=== PATIENT | male | born 1980 | race Caucasian/White ===

== ENCOUNTER 2022-11-27 15:16 | Observation (INO) ==
[2022-11-27] MEDS ORDERED: ASPIRIN CHEW 324 MG PO STA (15:38)
[2022-11-27] MEDS ORDERED: ALUMINUM/MAGNESIUM SUSP 30 ML UDC PO STA (15:38)
--- NOTE | 2022-11-27 15:42 | Emergency Department Note ---
Impression & Plan Non-ST elevation CT (NSTEMI), Chest pain ED Provider Note NAME: MICHELLE LEMUS AGE: 42 SEX: M : 1980 ARRIVES VIA: Walk-In INFORMANT: Patient, ED PROVIDER(S): Damon Etienne DO CHIEF COMPLAINT: Chest pain HPI: The patient is a 42-year-old male who presented to the emergency department for an evaluation of chest pain. The patient describes anterior chest pain which is retrosternal that began this morning. The patient states he awoke around 630 this morning with the chest pain. He does note some shortness of breath and some increase with the pain with breathing. He denies having any abdominal pain. He states he went golfing yesterday and after golfing and noticed some lower neck pain. He states the neck pain is since gone. He denies having any headache. He does note some back pain. The patient states he has no heart history and has had no cardiac work-up in the past. ROS: See above HPI for pertinent positives & negatives. A total of 10 systems reviewed and were otherwise negative. PAST MEDICAL HISTORY: See Below PAST SURGICAL HISTORY: See Below FAMILY HISTORY: See Below SOCIAL HISTORY: See Below HOME MEDICATIONS: See Below ALLERGIES: See Below VITALS: See Below PHYSICAL EXAMINATION: GENERAL: The patient is awake and alert. The patient is somewhat anxious appearing. EYES: The conjunctivae are clear. The pupils are round and reactive. EARS, NOSE, MOUTH AND THROAT: The nose is without any evidence of any deformity. NECK: The neck is nontender and supple. RESPIRATORY: Normal respiratory effort is noted there is no evidence of wheezing rhonchi or rales CARDIOVASCULAR: Regular rate and rhythm noted there no murmurs rubs or gallops normal S1 normal S2. GASTROINTESTINAL: The abdomen is soft. Abdomen is nontender. MUSCULOSKELETAL/EXTREMITIES: There is no evidence of gross deformity full range of motion is noted in the hips and shoulders. SKIN: There is no obvious evidence of any rash. There are no petechiae, pallor or cyanosis noted. NEUROLOGIC: Patient is awake alert and oriented x3 MEDICAL DECISION MAKING: The patient is a 42-year-old male who presented into the emergency department for an evaluation of chest pain. The patient had a normal EKG in the emergency department. He was treated with aspirin as well as Maalox in the emergency department. He did have pain to his back initially thought this could be consis tent with a GI source for his pain. The patient was found to have an elevation in his troponin. He also had an elevation in his D-dimer. Given his back pain there is concern for venous thromboembolic disease as well as aortic dissection. For this reason dissection study was ordered but I discussed his condition with the [facility] router setter as well as the bobbin doffer after his troponin came back elevated. Given the patient's normal EKG he was started on heparin initially. Then the decision was made to make the patient a heart alert. Given the patient's age as well as his risk factors and family history he may be a candidate for cardiac catheterization with intervention. The patient was feeling much better on subsequent reevaluation. I discussed his condition also with the [facility] Hospitalist. The patient was agreeable to the plan. Triage Nursing notes reviewed. Prior medical records reviewed Vital Signs: reviewed and remarkable for no significant abnormalities Differential diagnosis: Cardiac ischemia, aortic dissection, pulmonary embolism, pneumothorax, pneum onia, pericarditis, myocarditis, esophageal rupture, GERD, cholecystitis, pancreatitis, musculoskeletal, as well as other pathologies. ER treatment provided: See below Diagnostics interpreted by me: ECG: EKG was obtained in the emergency department. My interpretation is normal sinus rhythm at 88 bpm. There is no ectopy. There is no acute ST segment abnormalities noted. No previous tracing was available. A second EKG was obtained in the emergency department. My interpretation is normal sinus rhythm at 89 bpm. There is no ectopy. There is no acute ST segment abnormalities noted. This EKG compares favorably to the earlier tracing. There are no significant changes. Cardiac Monitoring: An order was placed for continuous cardiac monitoring. The monitor shows a rate of 89 bpm with sinus rhythm. Laboratory studies: As stated above and show below. Imaging studies: See below. Radiographic imaging was reviewed by myself Consultation(s): I discussed this case with Dr. Gregorio who is on-call for the [facility] cardiology group. I discussed this case with Dr Stevens I discussed this case with Lorna who is on-call for the [facility] hospitalist group. ED COURSE: Procedures: none Critical Care: I have personally spent greater than 45 minutes of critical care time in the direct management of this patient. This includes bedside care, interpretation of diagnostic studies, and testing, discussion with consultants, patient, and family members, and other required patient management activities. This 45 minutes is in excess of all separately billable procedures. Past Med/Surg History Social History Smoking Status: Current some day smoker Feels Safe at Home: Yes Allergies Allergies Allergy/AdvReac Type Severity Reaction Status Date / Time No Known Allergies AdvReac Unknown Unverified 07/05/04 13:41 Home Meds Home Medications Medication Instructions Recorded Confirmed ibuprofen 200 mg tablet (Advil) 200 mg PO DAILY PRN Pain 11/27/22 11/27/22 Results & Data (ED) Vital Signs Vital Signs - 24 hr 11/27/22 15:17 11/27/22 15:46 11/27/22 15:47 Temperature 36.6 C Temperature Source Temporal Artery Scan Pulse Rate 95 H 85 Pulse Rate [Apical] 81 Pulse Rhythm [Apical] Pulse Strength [Apical] Respiratory Rate 20 21 21 Respiratory Effort / Characteristics Non-Labored Respiratory Depth Normal Blood Pressure 135/88 Blood Pressure [Right Arm] 142/97 H Blood Pressure Mean 103 Blood Pressure Mean [Right Arm] 112 Blood Pressure Position [Right Arm] Semi-fowlers Pulse Oximetry 99 99 99 Oxygen Delivery Method Room Air Room Air Room Air Sepsis Recent Fever Within 48 Hours No Sepsis New/Unexplained Change in Mental Status No Sepsis Action Taken by Nursing No Action Required 11/27/22 16:06 11/27/22 18:45 Temperature Temperature Source Pulse Rate 79 Pulse Rate [Apical] 89 Pulse Rhythm [Apical] Regular Pulse Strength [Apical] Normal Respiratory Rate 16 Respiratory Effort / Characteristics Non-Labored Spontaneous Respiratory Depth Normal Blood Pressure Blood Pressure [Right Arm] 132/92 Blood Pressure Mean Blood Pressure Mean [Right Arm] 105 Blood Pressure Position [Right Arm] Semi-fowlers Pulse Oximetry 97 Oxygen Delivery Method Room Air Sepsis Recent Fever Within 48 Hours Sepsis New/Unexplained Change in Mental Status Sepsis Action Taken by Group Home Medications Current Medication List: was personally reviewed by me Laboratory Data Attestation: I reviewed the patient's lab results. 11/27/22 15:32 11/27/22 15:32 Lab Results 11/27/22 11/27/22 11/27/22 Range/Units 15:32 15:32 15:32 WBC 6.87 (4.8-10.8) K/ul RBC 5.16 (4.70-6.10) M/uL Hgb 16.1 (14.0-18.0) g/dl Hct 46.8 (42.0-52.0) % MCV 90.7 (80.0-100.0) fL MCH 31.2 (25.0-34.0) pg MCHC 34.4 (32.0-36.0) g/dL RDW Std Deviation 40.2 (36.4-46.3) fL RDW Coeff of Dottie 12.0 (11.5-14.5) % Plt Count 213 (130-400) K/uL MPV 9.3 L (9.4-12.4) fL Immature Gran % (Auto) 0.6 % Neut % (Auto) 80.0 % Lymph % (Auto) 8.3 % [place] % (Auto) 10.8 % Eos % (Auto) 0.0 % Baso % (Auto) 0.3 % Neut # (Auto) 5.50 (1.40-6.50) K/uL Lymph # (Auto) 0.57 L (1.2-3.4) K/uL [place] # (Auto) 0.74 H (0.11-0.59) K/uL Eos # (Auto) 0.00 (0-0.50) K/uL Baso # (Auto) 0.02 (0-0.2) K/uL Immature Gran # (Auto) 0.04 (0.01-0.20) K/uL PT 10.9 (9.0-12.0) Seconds INR 1.0 (0.9-1.1) D-Dimer 600 H* (0-500) ug/L FEU Sodium 136 (136-145) mmol/L Potassium 3.9 (3.5-5.1) mmol/L Chloride 103 (98-107) mmol/L Carbon Dioxide 25 (21-32) mmol/L Anion Gap 8 (3-11) BUN 16 (6-23) mg/dl Creatinine 1.19 (0.6-1.4) mg/dl Est Cr Clr Drug Dosing 80.0 ml/min Est GFR ( Amer) 86.2 ml/min Est GFR (Non-Af Amer) 74.4 ml/min BUN/Creatinine Ratio 13.4 (10-20) Glucose 139 H (70-99(Fasting)) mg/dl Calcium 10.0 (8.6-10.3) mg/dl Total Bilirubin 0.5 (0.2-1.0) mg/dl AST 64 H (13-39) U/L ALT 87 H (7-52) U/L Alkaline Phosphatase 70 (34-104) U/L Troponin I High Sens 1509.6 H* (0-20) pg/ml Total Protein 8.2 (6.0-8.3) gm/dl Albumin 4.8 (3.4-5.0) gm/dl Globulin 3.4 (2.5-4.0) gm/dl Albumin/Globulin Ratio 1.4 (0.9-2) Lipase 54 (11-82) U/L SARS-CoV-2, RNA, NAAT (NEGATIVE) 11/27/22 Range/Units 16:45 WBC (4.8-10.8) K/ul RBC (4.70-6.10) M/uL Hgb (14.0-18.0) g/dl Hct (42.0-52.0) % MCV (80.0-100.0) fL MCH (25.0-34.0) pg MCHC (32.0-36.0) g/dL RDW Std Deviation (36.4-46.3) fL RDW Coeff of Dottie (11.5-14.5) % Plt Count (130-400) K/uL MPV (9.4-12.4) fL Immature Gran % (Auto) % Neut % (Auto) % Lymph % (Auto) % [place] % (Auto) % Eos % (Auto) % Baso % (Auto) % Neut # (Auto) (1.40-6.50) K/uL Lymph # (Auto) (1.2-3.4) K/uL [place] # (Auto) (0.11-0.59) K/uL Eos # (Auto) (0-0.50) K/uL Baso # (Auto) (0-0.2) K/uL Immature Gran # (Auto) (0.01-0.20) K/uL PT (9.0-12.0) Seconds INR (0.9-1.1) D-Dimer (0-500) ug/L FEU Sodium (136-145) mmol/L Potassium (3.5-5.1) mmol/L Chloride (98-107) mmol/L Carbon Dioxide (21-32) mmol/L Anion Gap (3-11) BUN (6-23) mg/dl Creatinine (0.6-1.4) mg/dl Est Cr Clr Drug Dosing ml/min Est GFR ( Amer) ml/min Est GFR (Non-Af Amer) ml/min BUN/Creatinine Ratio (10-20) Glucose (70-99(Fasting)) mg/dl Calcium (8.6-10.3) mg/dl Total Bilirubin (0.2-1.0) mg/dl AST (13-39) U/L ALT (7-52) U/L Alkaline Phosphatase (34-104) U/L Troponin I High Sens (0-20) pg/ml Total Protein (6.0-8.3) gm/dl Albumin (3.4-5.0) gm/dl Globulin (2.5-4.0) gm/dl Albumin/Globulin Ratio (0.9-2) Lipase (11-82) U/L SARS-CoV-2, RNA, NAAT NEGATIVE (NEGATIVE) Administered Medications Discontinued Medications Al Hydrox/Mg Hydrox/Simethicone (Aluminum/Magnesium Susp 30 Ml Udc) 30 ml PO NOW STA Stop: 11/27/22 15:39 Last Admin: 11/27/22 15:44 Dose: 30 ml Documented By: AB Aspirin (Aspirin Chew 324 Mg) 324 mg PO NOW STA Stop: 11/27/22 15:39 Last Admin: 11/27/22 15:44 Dose: 324 mg Documented By: AB Fentanyl Citrate (Fentanyl Citrate Pf 100 Mcg/2 Ml Vial) Confirm Administered Dose 100 mcg .ROUTE .STK-MED ONE Stop: 11/27/22 17:56 Last Increment: 11/27/22 18:40 Dose: 50 mcg Documented By: NITHYA Heparin Sodium (Porcine) (Heparin Sod (Porcine) 1000 Unit/Ml) 1 units IV NOW ONE Stop: 11/27/22 17:41 Last Admin: 11/27/22 17:43 Dose: 6,000 units Documented By: KT Co-signed By: ANTHONY Heparin Sodium (Porcine) (Heparin (Porcine) 1000 Unit/Ml 10 Ml (Delivery Mgr Use Only)) Confirm Administered Dose 10,000 units .ROUTE .STK-MED ONE Stop: 11/27/22 17:56 Last Admin: 11/27/22 18:40 Dose: Not Given Documented By: NITHYA Heparin Sodium/Dextrose (Heparin Iv Adult Wt-Based Standard With Bolus Protocol) 1 each IV NOW STA; Protocol Stop: 11/27/22 17:26 Last Admin: 11/27/22 17:43 Dose: 1 each Documented By: RANI Heparin Sodium/Sodium Chloride (Heparin In Nss Infusion 1000 Unit/500 Ml (2 U/Ml) Bag) Confirm Administered Dose 4,000 units IV .STK-MED ONE Stop: 11/27/22 17:56 Last Admin: 11/27/22 18:40 Dose: 4,000 units Documented By: CHUCKY Heparin Sodium/Dextrose (Heparin Sodium/Dextrose) 25,000 units in 500 mls @ 27 mls/hr IV .[id number] [facility]; Protocol Stop: 12/27/22 17:44 Last Admin: 11/27/22 17:44 Dose: 1,350 units/hr, 27 mls/hr Documented By: RANI Co-signed By: ANTHONY Ioversol (Optiray 320 125ml) 120 ml IV ONCE ONE Stop: 11/27/22 17:09 Last Admin: 11/27/22 17:08 Dose: 120 ml Documented By: WILLIAMS Lidocaine HCl (Lidocaine 1% Local 20 Ml Vial) Confirm Administered Dose 20 ml .ROUTE .STK-MED ONE Stop: 11/27/22 17:57 Last Admin: 11/27/22 18:41 Dose: 20 ml Documented By: CHUCKY Midazolam HCl (Midazolam Hcl 1 Mg/Ml 2ml Vial) Confirm Administered Dose 2 mg .ROUTE .STK-MED ONE Stop: 11/27/22 17:56 Last Increment: 11/27/22 18:40 Dose: 1 mg Documented By: NITHYA Morphine Sulfate (Morphine Sulfate 4 Mg/Ml 1 Ml Carp\Vial) 4 mg IV NOW STA Stop: 11/27/22 16:52 Last Admin: 11/27/22 16:53 Dose: 4 mg Documented By: Nicardipine HCl (Nicardipine Hcl Inj 2.5 Mg/Ml 10 Ml Amp) Confirm Administered Dose 25 mg .ROUTE .STK-MED ONE Stop: 11/27/22 17:56 Last Admin: 11/27/22 18:41 Dose: 25 mg Documented By: CHUCKY Nitroglycerin/Dextrose (Nitroglycerin/D5w 100mcg/Ml 20ml Syr) Confirm Admin istered Dose 2,000 mcg .ROUTE .STK-MED ONE Stop: 11/27/22 17:57 Last Admin: 11/27/22 18:41 Dose: 2,000 mcg Documented By: CHUCKY Ondansetron HCl (Ondansetron Inj 2 Mg/Ml 2 Ml Vial) 4 mg IV NOW STA Stop: 11/27/22 16:52 Last Admin: 11/27/22 16:55 Dose: 4 mg Documented By: AB Imaging Data Attestation: I personally reviewed and interpreted this imaging study as follows: My Impression: 1 view chest x-ray was obtained in the emergency department. My interpretation is no free air or definite infiltrate, mediastinum is normal in appearance, final report below. Radiologist's Impression: Chest X-Ray 11/27/22 15:30 XR chest 1V portable CLINICAL HISTORY: Chest pain, nonspecific COMPARISON STUDY: No previous studies for comparison. FINDINGS: Lung volumes are normal. Lungs are clear. There is no pneumothorax or pleural effusion. Cardiac size is normal. Mediastinal contours are normal. There is no evidence for pulmonary edema. IMPRESSION: No acute cardiopulmonary findings. ACT 112: Negative or not required by law. Electronically signed by: Josue Cook M.D. 11/27/2022 3:50 PM Chest CTA 11/27/22 16:45 CT ANGIOGRAPHY OF THE CHEST DISSECTION PROTOCOL CLINICAL HISTORY: Chest pain radiating to back. Evaluate for thoracic aortic dissection. COMPARISON STUDY: Chest radiograph performed earlier today. TECHNIQUE: Before and following the IV administration of 120 mL of Optiray, helical axial images of the chest were obtained. Maximal intensity projections and sagittal and coronal reformats were viewed on an independent 3D workstation. IV contrast was administered without complication. Automated exposure control was utilized for the study. A dose lowering technique was utilized adhering to the principles of ALARA. CT DOSE: 1603.35 mGy.cm FINDINGS: The caliber of the thoracic aorta is normal. There is no thoracic aortic dissection or intramural hematoma. No pulmonary emboli are identified. The size of the heart is normal. There is apparent occlusion of a branch of the left anterior descending coronary artery on axial image 118 of 225. This could be artifactual on this nongated exam. No pericardial effusion. No thoracic lymphadenopathy. Central airways are patent. No pneumothorax or pleural effusion. There is no consolidation to suggest pneumonia. No acute fractures within the bony thorax are present. Visualized portions of the upper abdomen are unremarkable. IMPRESSION: 1. No thoracic aortic dissection. 2. Apparent occlusion of a branch of the left anterior descending coronary artery. This is suboptimally assessed on this nongated exam and may be artifactual. However, an occluded vessel cannot be excluded and correlation with clinical evidence for myocardial infarction is recommended. Findings discussed with Dr. Etienne at time of dictation. ACT 112: Negative or not required by law. Electronically signed by: Josue Cook M.D. 11/27/2022 5:27 PM Discharge Plan Visit Data Chief Complaint: Chest Pain Stated Complaint: CHEST PAINS,SOB,NECK PAIN,TINGLING HANDS ED Provider: Damon Etienne Discharge Problem: Non-ST elevation CT (NSTEMI), Chest pain Patient Disposition: Admitted As Inpatient Discharge Instructions Interventions: ED Discharge Assessment Last Done: 11/27/22 18:22
--- NOTE | 2022-11-27 15:52 | XRay Report ---
XR chest 1V portable CLINICAL HISTORY: Chest pain, nonspecific COMPARISON STUDY: No previous studies for comparison. FINDINGS: Lung volumes are normal. Lungs are clear. There is no pneumothorax or pleural effusion. Car diac size is normal. Mediastinal contours are normal. There is no evidence for pulmonary edema. IMPRESSION: No acute cardiopulmonary findings. ACT 112: Negative or not required by law. Electronically signed by: Josue Cook M.D. 11/27/2022 3:50 PM
[2022-11-27 16:00] LABS: Basophils # (auto) 0.02 K/uL (0-0.2); Basophils % (auto) 0.3 %; Hematocrit (blood only) 46.8 % (42.0-52.0); Hemoglobin 16.1 g/dl (14.0-18.0); Immature Granulocytes # (auto) 0.04 K/uL (0.01-0.20); Immature Granulocytes % (auto) 0.6 %; Lymphocytes # (auto) 0.57 K/uL (1.2-3.4); Lymphocytes % (auto) 8.3 %; Mean Corpuscular Hemoglobin 31.2 pg (25.0-34.0); Mean Corpuscular Hgb Conc 34.4 g/dL (32.0-36.0); Mean Corpuscular Volume 90.7 fL (80.0-100.0); Mean Platelet Volume 9.3 fL (9.4-12.4); Monocytes # (auto) 0.74 K/uL (0.11-0.59); Monocytes % (auto) 10.8 %; Platelet Count 213 K/uL (130-400); RDW Standard Deviation 40.2 fL (36.4-46.3); Red Blood Count 5.16 M/uL (4.70-6.10); White Blood Count 6.87 K/ul (4.8-10.8)
[2022-11-27 16:15] LABS: Albumin Globulin Ratio 1.4 (0.9-2); Albumin Level 4.8 gm/dl (3.4-5.0); BUN Creatinine Ratio 13.4 (10-20); Bilirubin,Total 0.5 mg/dl (0.2-1.0); Est GFR (African American) 86.2 ml/min; Est GFR (Non-African American) 74.4 ml/min; Globulin 3.4 gm/dl (2.5-4.0); Potassium 3.9 mmol/L (3.5-5.1); Total Protein 8.2 gm/dl (6.0-8.3)
[2022-11-27 16:30] LABS: Prothrombin Time 10.9 Seconds (9.0-12.0)
[2022-11-27 16:34] LABS: D Dimer 600 ug/L FEU (0-500)
[2022-11-27 16:37] LABS: Troponin I High Sensitivity 1509.6 pg/ml (0-20)
[2022-11-27] MEDS ORDERED: ONDANSETRON INJ 2 MG/ML 2 ML VIAL IV STA (16:51)
[2022-11-27] MEDS ORDERED: MoRPHine SULFATE 4 MG/ML 1 ML CARP\\VIAL IV STA (16:51)
[2022-11-27] MEDS ORDERED: OPTIRAY 320 125ml IV ONE (17:08)
[2022-11-27] MEDS ORDERED: Heparin IV Adult Wt-Based Standard WITH Bolus Protocol IV STA (17:25)
--- NOTE | 2022-11-27 17:25 | CT Scan Report ---
CT ANGIOGRAPHY OF THE CHEST DISSECTION PROTOCOL CLINICAL HISTORY: Chest pain radiating to back. Evaluate for thoracic aortic dissection. COMPARISON STUDY: Chest radiograph performed earlier today. TECHNIQUE: Before and following the IV administration of 120 mL of Optiray, helical axial images of t he chest were obtained. Maximal intensity projections and sagittal and coronal reformats were viewed on an independent 3D workstation. IV contrast was administered without complication. Automated exp osure control was utilized for the study. A dose lowering technique was utilized adhering to the delfin Oliver. CT DOSE: 1603.35 mGy.cm FINDINGS: The caliber of the thoracic aorta is normal. There is no thoracic aortic dissection or int ramural hematoma. No pulmonary emboli are identified. The size of the heart is normal. There is appar ent occlusion of a branch of the left anterior descending coronary artery on axial image 118 of 225. This could be artifactual on this nongated exam. No pericardial effusion. No thoracic lymphadenopathy . Central airways are patent. No pneumothorax or pleural effusion. There is no consolidation to sugge st pneumonia. No acute fractures within the bony thorax are present. Visualized portions of the upper abdomen are unremarkable. IMPRESSION: 1. No thoracic aortic dissection. 2. Apparent occlusion of a branch of the left anterior descending coronary artery. This is suboptima lly assessed on this nongated exam and may be artifactual. However, an occluded vessel cannot be excl uded and correlation with clinical evidence for myocardial infarction is recommended. Findings discus sed with Dr. Etienne at time of dictation. ACT 112: Negative or not required by law. Electronically signed by: Josue Cook M.D. 11/27/2022 5:27 PM
[2022-11-27] MEDS ORDERED: HEPARIN SOD (PORCINE) 1000 UNIT/ML IV ONE (17:40)
[2022-11-27] MEDS ORDERED: HEPARIN SODIUM/DEXTROSE 25,000 UNITS/500 ML BAG IV SCH (17:45)
[2022-11-27] MEDS ORDERED: MIDAZOLAM HCL 1 MG/ML 2ML VIAL ONE (17:55)
[2022-11-27] MEDS ORDERED: fentaNYL citrate PF 100 MCG/2 ML VIAL ONE (17:55)
[2022-11-27] MEDS ORDERED: HEPARIN (PORCINE) 1000 UNIT/ML 10 ML (CATH LAB USE ONLY) ONE (17:55)
[2022-11-27] MEDS ORDERED: niCARdipine HCL INJ 2.5 MG/ML 10 ML AMP ONE (17:55)
[2022-11-27] MEDS ORDERED: LIDOCAINE 1% LOCAL 20 ML VIAL ONE (17:56)
[2022-11-27] MEDS ORDERED: NITROGLYCERIN/D5W 100MCG/ML 20ML SYR ONE (17:56)
--- NOTE | 2022-11-27 18:58 | Pre Anesthesia Assessment ---
Date of Service November 27, 2022 Pre Sedation Assessment Vital Signs Temp Pulse Pulse Resp BP BP Pulse Ox 11/27/22 18:45 89 16 132/92 97 11/27/22 16:06 79 11/27/22 15:47 81 21 142/97 H 99 11/27/22 15:46 85 21 99 11/27/22 15:17 97.9 F 95 H 20 135/88 99 O2 Del Method 11/27/22 18:45 Room Air 11/27/22 16:06 11/27/22 15:47 Room Air 11/27/22 15:46 Room Air 11/27/22 15:17 Room Air Cardiovascular RRR, no murmur, no edema Respiratory normal respiratory effort, lungs clear to auscultation Pre-Sedation Airway Assessment Smoking Status: Current some day smoker Hx Sleep Apnea: No Hx Difficult Intubation: No Short, Thick Neck: No Thyromental Distance: < 3.5 Finger Breadths Oral Cavity: + WNL Mallampati Class: III ASA: ASA3 Procedure Planning Contraindications for Sedation: none Current Medications Reviewed: Yes Notes The planned sedation has been discussed with the patient. Informed Consent was obtained. I have identified the patient, determined the appropriateness of sedation and have assessed the patient immediately prior to the procedure. All medicine(s) and interventions are by my order.
--- NOTE | 2022-11-27 19:08 | Cardiac Catheterization ---
[facility] Data: Rubber Flap Cutter Cardiac Status Clinical evaluation leading to the procedure CAD Presenation: Non STEMI Anginal Classification: CCS IV Diagnostic Physicians Name: Jesus Stevens MD Closure Device Recommendations: Medical Therapy and/or Counseling Cardiac Cath Procedure Full Procedure Date November 27, 2022 Pre-Procedure Diagnosis Pre-Procedure Diagnosis: Non STEMI AUC Score AUC Score: 8 Post-Procedure Diagnosis Post-Procedure Diagnosis: Normal Coronary Arteries and Normal Intracardiac Pressures Procedure(s) Performed Procedure(s) Performed: Coronary Angiography, Left Heart Cath and LV Angiography Message Clerk Jesus Stevens MD Data Entry Clerk(s) Tera Estimated Blood Loss Estimated Blood Loss: 5 Medication(s) Medication(s): Fentanyl, Heparin, Lidocaine 1%, Nicardipine, Nitroglycerin and Versed Summary of Findings Indication: Chest pain, elevated troponin, suspected ACS Access: 6 Fr right radial artery Catheters: [place], pigtail Findings: LM -large caliber, no significant disease LAD -large caliber, no significant disease, distal vessel wraps around apex. 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 Ramuslarge caliber, no significant disease Circumflex -medium caliber, midsegment luminal irregularities. OM1, left PLB without significant disease RCA -dominant, large caliber vessel, no significant disease. LVEDP -8 LVEF60%, no regional wall motion abnormalities Arterial Closure: 6 Fr right radial artery Summary: 1. Angiographically normal coronary arteries 2. Normal intracardiac filling pressure 3. Normal LV function, EF 60% Recommendations: No high risk CAD to explain patient's chest pain, troponin elevation. LV function normal. Suspect symptoms/troponin may be secondary to myocarditis. Admit to telemetry for observation. Trend troponin. Echocardiogram in the morning. Hemodynamics Rest Ao:: 108/80/93 Final Ao: 115/80/96 LV: 123/8 Recommendations Recommendations: Medical Therapy and/or Counseling Specimens Specimens: None Radiation Exposure (mGy) 868 Contrast (mls) 135 Anesthesia Moderate 6685-2967 Procedural Complication(s) None Disposition Rubber Flap Cutter Holding/Recovery I attest to the content of the Intraoperative Record and any orders documented therein. Any exceptions are noted below. Via [employer] Card Cath Procedure Codes Cardiac Catheterization Procedure 1: Cardiovascular Cath Procedures: 41719 Coronaries and LHC (+/-LV) Moderate Sedation Procedure 1: Sedation/Anesthesia: 53906 Mod Sedation by the same physician;Init15 Min Child Age 5 & Up PG Care Time/CCT Total # of Minutes Spent Total Time Spent with Patient: Total time spent is greater than 50% in coordination of care (as documented) at patient's floor/unit and/or counseling patient:
--- NOTE | 2022-11-27 19:08 | Post Anesthesia Assessment ---
Date of Service November 27, 2022 Post Sedation Assessment Vital Signs Temp Pulse Pulse Resp BP BP Pulse Ox 11/27/22 18:45 89 16 132/92 97 11/27/22 16:06 79 11/27/22 15:47 81 21 142/97 H 99 11/27/22 15:46 85 21 99 11/27/22 15:17 97.9 F 95 H 20 135/88 99 O2 Del Method 11/27/22 18:45 Room Air 11/27/22 16:06 11/27/22 15:47 Room Air 11/27/22 15:46 Room Air 11/27/22 15:17 Room Air Recovery Score Activity: Moves 4 extremities Respiration: Deep Breath/Cough Circulation: +/-20% PreAnes Value Consciousness: Fully Awake Oxygen Saturation: > 92% On Room Air Post Anesthesia Score: 10 Discharge Sedation Level of Care: Fast Track Phase II Post Sedation Plan On clinical assessment, the patient appears to have tolerated the sedation without complications. Patient is recovering as anticipated. Patient will continue to be monitored by nursing and may be discharged when sedation discharge criteria are met per below protocol. Upon Completions of procedure up to 15 minutes continue every 5 minute vital signs and the P.A.R. score; then discharge to a Phase I or Fast Track to Phase II per the following guidelines: * Discharge Patient to appropriate Phase II area if PAR is 8 or greater or return to pre- procedure baseline. The post - procedure orders will be as directed. * If PAR score is less than 8 or not return to pre-procedure baseline then patient will follow Phase I monitoring till PAR is reached for Phase II. The Phase I may be done in procedure room or may call to secure a Phase I area. * If naloxone or flumazenil are used for reversal, hold in Phase I for continued monitoring from when last reversal dose was given for a minimum of 60 minutes or longer pending the nurse and/or physician discretion of patient condition before discharge to Phase II. Please call the Sedation Physician to re-evaluate and complete post-note for discharge to Phase II area. Do NOT discharge from procedure sedation or Phase 1 until post- sedation evaluation note is complete by procedure /sedation MD Sedation Discharge Instructions to be given to the patient at discharge to home.
[2022-11-27] MEDS ORDERED: ONDANSETRON INJ 2 MG/ML 2 ML VIAL IV PRN (19:15)
[2022-11-27] MEDS ORDERED: MAGNESIUM HYDROXIDE SUSP 30 ML UDC PO PRN (19:15)
[2022-11-27] MEDS ORDERED: ALUMINUM/MAGNESIUM SUSP 30 ML UDC PO PRN (19:15)
[2022-11-27] MEDS ORDERED: POLYETHYLENE (MIRALAX) 17 GM PACK PO PRN (19:15)
--- NOTE | 2022-11-27 19:19 | Cardiology Consultation ---
Date of Consultation November 27, 2022 Assessment & Plan (1) Acute coronary syndrome: Due to suspected acute coronary syndrome and ongoing chest pain patient was taken urgently for cardiac catheterization. Cardiac cath revealed angiographically normal coronary arteries. Suspect CTA findings may have been due to myocardial bridging in mid D1 versus artifact. LV gram and bedside echocardiogram revealed normal LV function. No gross valve pathology. No pericardial effusion on echo. Overall suspect patient's chest symptoms/troponin elevation may be secondary to myocarditis. No evidence of pericarditis. Chest pain symptoms have largely resolved. Going forward: Admit for observation to telemetry Continue to trend troponins Formal echocardiogram in the morning. Can discontinue heparin infusion No need for NSAIDs, colchicine at this time. Dr. Gregorio to take over cardiac care tomorrow. Further outpatient recommendations per his team. History of Present Illness Attending Physician: Jesus Stevens MD History of Present Illness Mr. Blanchard is a very pleasant 42-year-old man seen urgently in the emergency department due to ongoing chest pain and elevated troponin. Patient has no prior cardiac history. No significant medical issues and is on no medications. Patient states that this morning around 630 woke up with substernal chest pain. No associated nausea, diaphoresis. Pain persisted throughout the day and eventually radiated to his back. Of note patient states had a normal day yesterday but after coughing had noted new neck pain which persisted until he went to bed. In ED patient with ongoing chest pain that was eventually relieved with morphine. Serial ECGs showed normal sinus rhythm with no ST changes. Initial HS TropI 1500. D-dimer elevated and CTA negative for dissection, PE. There was question of an LAD branch occlusion on the chest CTA. Family history: No premature CAD or SCD. Social history: Non-smoker. . 1 daughter age 11. Works for [employer] in [employer] Allergies Allergy/AdvReac Type Severity Reaction Status Date / Time No Known Allergies AdvReac Unknown Unverified 07/05/04 13:41 Home Medications Medication Instructions Recorded Confirmed Type ibuprofen 200 mg tablet (Advil) 200 mg PO DAILY PRN Pain 11/27/22 11/27/22 History Patient History Social History Smoking Status: Current some day smoker Feels Safe at Home: Yes Review of Systems Review of Systems: All systems reviewed & are unremarkable except as noted in HPI & below Physical Exam Physical Exam: General: Comfortable HEENT: Sclerae anicteric Lungs: Clear to auscultation bilaterally, no crackles or wheezes Cardiac: Regular rate and rhythm, no murmurs. Vascular: 2+ radial, DP pulses. No bruits Abdomen: Soft, nontender Extremities: Well perfused, no peripheral edema Neuro: Nonfocal Psych: Alert orient x3, normal affect and mood Results & Data Vital Signs (Past 12 Hours) Vital Signs Temp Pulse Pulse Resp BP BP Pulse Ox 11/27/22 18:45 89 16 132/92 97 11/27/22 16:06 79 11/27/22 15:47 81 21 142/97 H 99 11/27/22 15:46 85 21 99 11/27/22 15:17 97.9 F 95 H 20 135/88 99 O2 Del Method 11/27/22 18:45 Room Air 11/27/22 16:06 11/27/22 15:47 Room Air 11/27/22 15:46 Room Air 11/27/22 15:17 Room Air PG Care Time/CCT Total # of Minutes Spent Total Time Spent with Patient: Total time spent is greater than 50% in coordination of care (as documented) at patient's floor/unit and/or counseling patient: Coding Level of Care Code 41154 OFFICE CONSULT LVL Diagnoses Acute coronary syndrome I24.9
--- NOTE | 2022-11-27 19:36 | History & Physical Report ---
Date of Service November 27, 2022 Assessment & Plan (1) Myocarditis: Plan: Uncertain cause, no recent infections or illness. No prescription or OTC drug use. Urine drug screen pending although patient denies recreational drug use. Cont to trend troponin. Cardiology consult. (2) Smoking: Plan: Occasional cigar use. Smoking cessation advised. (3) Elevated transaminase level: Plan: Likely related to ongoing inflammatory process above. Trend in am and if not improving, would consider further workup with and US liver. Notably he did have a "few beers" yesterday while playing golf, which may be contributing. Lovenox Full Code Dispo-home pending cardiology clearance tomorrow. [facility] and [facility]ticipated Discharge Date Admission Date: November 27, 2022 History of Present Illness Chief Complaint: chest pain Primary Care Provider: ALEXIA PCP 42 yo M with anterior chest pain radiating to his back when he woke up this morning. He had some shortness of breath and increased pain with inspiration. Noticed lower neck pain yesterday during a golf outing. No neck pain at this time. Risk factors for CAD include smoking. He was treated with Maalox and ASA 324mg in the ER and workup included a troponin of 1510, D-dimer of 600, EKG revealing sinus rhythm with rate of 89 bpm and no acute ST abnormalities that would suggest acute ischemia. He underwent a CTA to rule out aortic dissection and PE, which were ruled out. However, a possible occlusion of a branch of the left anterior descending coronary artery was seen. He was started on a heparin drip and urgently taken to [facility] where no significant cardiac disease was found. Post cath denies any pain or shortness of breath. Allergies Allergy/AdvReac Type Severity Reaction Status Date / Time No Known Allergies AdvReac Unknown Unverified 07/05/04 13:41 Home Medications Medication Instructions Recorded Confirmed Type ibuprofen 200 mg tablet (Advil) 200 mg PO DAILY PRN Pain 11/27/22 11/27/22 History Past Med/Surg History Medical History Inguinal lymphadenopathy Surgical History H/O lymph node excision Family History (Updated 11/27/22 @ 20:49 by Wendy Saldana DO) Grandfather (Maternal) Coronary heart disease Aunt Coronary heart disease Social History Smoking Status: Current some day smoker Second Hand Exposure: No; Do You Dip or Chew Tobacco: No; Tobacco Cessation Education Requested by Patient: No Hx Alcohol Use: Yes Alcohol type: beer Hx Substance Use: No Preferred Language: Divehi Senior Marketing Specialist Required: No Beliefs That Will Affect Care: None Current Living Situation: Spouse Other Information That Helps Us Care for You: No Feels Safe at Home: Yes Safety Concerns: Feels Safe At This Time Assistive Devices: Glasses Review of Systems Review of Systems: All systems were reviewed and negative except as indicated on HPI above. Physical Exam Physical Exam: CONSTITUTIONAL: WNWD, vitals as above, generally well-appearing, NAD EYES: normal conjunctivae, no scleral icterus, ENT: external ear and nose normal, NECK: trachea midline RESPIRATORY: clear to auscultation bilaterally, no crackles, rales or wheezes, normal respiratory effort CARDIOVASCULAR: regular rate and rhythm, S1 and 2 heard without murmurs, gallops or rubs, no JVD, no peripheral edema, TR band on right wrist. CHEST: inspection of chest was normal GASTROINTESTINAL: soft, nontender, ND, no guarding MUSCULOSKELETAL: strength 5/5 throughout, head is normocephalic and atraumatic, neck supple, normal palpation of chest wall without tenderness SKIN: warm and dry, no rashes NEUROLOGIC: CN 2-12 grossly intact, no sensory deficit, normal cognition, normal speech, no tremor PSYCHIATRIC: alert cooperative and oriented to person, place and time. Euthymic mood, makes good eye contact, language grossly intact, recent and remote memory grossly intact. Results & Data Results & Data Vital Signs (Past 12 Hours) Vital Signs Temp Pulse Pulse Resp BP BP Pulse Ox 11/27/22 19:20 36.7 C 82 20 135/88 97 11/27/22 19:15 11/27/22 18:45 89 16 132/92 97 11/27/22 16:06 79 11/27/22 15:47 81 21 142/97 H 99 11/27/22 15:46 85 21 99 11/27/22 15:17 36.6 C 95 H 20 135/88 99 Pulse Ox O2 Del Method O2 Del Method 11/27/22 19:20 Room Air 11/27/22 19:15 99 Room Air 11/27/22 18:45 Room Air 11/27/22 16:06 11/27/22 15:47 Room Air 11/27/22 15:46 Room Air 11/27/22 15:17 Room Air Laboratory Results Short CBC 11/27/22 Range/Units 15:32 WBC 6.87 (4.8-10.8) K/ul Hgb 16.1 (14.0-18.0) g/dl Hct 46.8 (42.0-52.0) % Plt Count 213 (130-400) K/uL BMP 11/27/22 15:32 Sodium 136 Potassium 3.9 Chloride 103 Carbon Dioxide 25 BUN 16 Creatinine 1.19 Glucose 139 H Calcium 10.0 Liver Function 11/27/22 Range/Units 15:32 Total Bilirubin 0.5 (0.2-1.0) mg/dl AST 64 H (13-39) U/L ALT 87 H (7-52) U/L Alkaline Phosphatase 70 (34-104) U/L Albumin 4.8 (3.4-5.0) gm/dl Diagnostic Findings Chest X-Ray 11/27/22 15:30 XR chest 1V portable CLINICAL HISTORY: Chest pain, nonspecific COMPARISON STUDY: No previous studies for comparison. FINDINGS: Lung volumes are normal. Lungs are clear. There is no pneumothorax or pleural effusion. Cardiac size is normal. Mediastinal contours are normal. There is no evidence for pulmonary edema. IMPRESSION: No acute cardiopulmonary findings. ACT 112: Negative or not required by law. Electronically signed by: Josue Cook M.D. 11/27/2022 3:50 PM Chest CTA 11/27/22 16:45 CT ANGIOGRAPHY OF THE CHEST DISSECTION PROTOCOL CLINICAL HISTORY: Chest pain radiating to back. Evaluate for thoracic aortic dissection. COMPARISON STUDY: Chest radiograph performed earlier today. TECHNIQUE: Before and following the IV administration of 120 mL of Optiray, helical axial images of the chest were obtained. Maximal intensity projections and sagittal and coronal reformats were viewed on an independent 3D workstation. IV contrast was administered without complication. Automated exposure control was utilized for the study. A dose lowering technique was utilized adhering to the principles of ALARA. CT DOSE: 1603.35 mGy.cm FINDINGS: The caliber of the thoracic aorta is normal. There is no thoracic aortic dissection or intramural hematoma. No pulmonary emboli are identified. The size of the heart is normal. There is apparent occlusion of a branch of the left anterior descending coronary artery on axial image 118 of 225. This could be artifactual on this nongated exam. No pericardial effusion. No thoracic lymphadenopathy. Central airways are patent. No pneumothorax or pleural effusion. There is no consolidation to suggest pneumonia. No acute fractures within the bony thorax are present. Visualized portions of the upper abdomen are unremarkable. IMPRESSION: 1. No thoracic aortic dissection. 2. Apparent occlusion of a branch of the left anterior descending coronary artery. This is suboptimally assessed on this nongated exam and may be artifactual. However, an occluded vessel cannot be excluded and correlation with clinical evidence for myocardial infarction is recommended. Findings discussed with Dr. Etienne at time of dictation. ACT 112: Negative or not required by law. Electronically signed by: Josue Cook M.D. 11/27/2022 5:27 PM Medications Administered Current Inpatient Medications Acetaminophen (Acetaminophen 325 Mg Tab) 650 mg PO Q4H PRN PRN Reason: Pain or Fever Stop: 12/27/22 19:14 Al Hydrox/Mg Hydrox/Simethicone (Aluminum/Magnesium Susp 30 Ml Udc) 15 ml PO Q4H PRN PRN Reason: Dyspepsia Stop: 12/27/22 19:14 Magnesium Hydroxide (Magnesium Hydroxide Susp 30 Ml Udc) 30 ml PO Q12H PRN PRN Reason: Constipation Stop: 12/27/22 19:14 Ondansetron HCl (Ondansetron Inj 2 Mg/Ml 2 Ml Vial) 4 mg IV Q6H PRN PRN Reason: Nausea Stop: 12/27/22 19:14 Polyethylene Glycol (Polyethylene (Miralax) 17 Gm Pack) 17 gm PO DAILY PRN PRN Reason: Constipation Stop: 12/27/22 19:14
[2022-11-27] MEDS: ENOXAPARIN INJ 40 MG/0.4 ML SYR SQ SCH (21:36)
[2022-11-27] MEDS: ACETAMINOPHEN 325 MG TAB PO PRN (22:40)
[2022-11-27] MEDS ORDERED: KETOROLAC TROMETHAMINE 15 MG/ML VIAL IV ONE (23:43)
[2022-11-27] MEDS ORDERED: IBUPROFEN 200 MG TAB PO PRN (23:46)
[2022-11-27] MEDS ORDERED: oxyCODONE HCL IR 5 MG TAB (IMMEDIATE RELEASE) PO PRN (23:46)
[2022-11-28 00:28] LABS: Lyme Ab IgG w/WB Rflx Negative (Negative); Lyme Ab IgM w/WB Rflx Negative (Negative)
--- NOTE | 2022-11-28 01:52 | CT Scan Report ---
Exam(s): CT HEAD Without Contrast EXAM: CT Head Without Intravenous Contrast CLINICAL HISTORY: Reason for exam: tony. TECHNIQUE: Axial computed tomography images of the head/brain without intravenous contrast. Automated exposure control was utilized for the study. A dose lowering technique was utilized adhering to the principles of ALARA. COMPARISON: None. FINDINGS: Brain: Unremarkable. No hemorrhage. No significant white matter disease. No edema. Ventricles: Unremarkable. No ventriculomegaly. Bones/joints: Unremarkable. No acute fracture. Soft tissues: Unremarkable. Sinuses: Unremarkable as visualized. No acute sinusitis. Mastoid air cells: Unremarkable as visualized. No mastoid effusion. IMPRESSION: Normal CT brain. Electronically signed by: Micaela Randle MD 11/28/22 01:51 AM
[2022-11-28 02:19] LABS: Appearance Urine Clear (Clear); Bacteria Urine Automated Negative (Negative); Bilirubin Urine Negative (Negative); Blood Urine Negative (Negative); Color Urine Yellow; Glucose Urine UA Negative (Negative); Ketones Urine Trace (Negative); Leukocyte Esterase Urine Negative (Negative); Nitrite Urine Negative (Negative); Protein Urine Trace (Negative); RBC Urine Automated 0-4 /hpf (0-4); Specific Gravity Urine > 1.045 (1.000-1.030); Urobilinogen Urine Negative (Negative)
[2022-11-28 02:43] LABS: Amphetamines+Metham, Urine Neg (Neg); Barbiturates, Urine Neg (Neg); Benzodiazepine, Urine Pos (Neg); Cocaine, Urine Neg (Neg); MDMA (Ecstacy), Urine Neg (Neg); Methadone, Urine Neg (Neg); Opiate, Urine Pos (Neg); Phencyclidine, Urine Neg (Neg)
[2022-11-28 04:08] LABS: Basophils # (auto) 0.03 K/uL (0-0.2); Basophils % (auto) 0.5 %; Eosinophils # (auto) 0.01 K/uL (0-0.50); Eosinophils % (auto) 0.2 %; Hematocrit (blood only) 42.5 % (42.0-52.0); Hemoglobin 14.6 g/dl (14.0-18.0); Immature Granulocytes # (auto) 0.02 K/uL (0.01-0.20); Immature Granulocytes % (auto) 0.3 %; Lymphocytes % (auto) 16.8 %; Mean Corpuscular Hemoglobin 30.9 pg (25.0-34.0); Mean Corpuscular Hgb Conc 34.4 g/dL (32.0-36.0); Mean Platelet Volume 9.3 fL (9.4-12.4); Monocytes # (auto) 1.01 K/uL (0.11-0.59); Monocytes % (auto) 16.9 %; Neutrophils # (auto) 3.89 K/uL (1.40-6.50); Neutrophils % (auto) 65.3 %; Platelet Count 168 K/uL (130-400); RDW Coefficient of Variation 12.1 % (11.5-14.5); RDW Standard Deviation 39.8 fL (36.4-46.3); Red Blood Count 4.72 M/uL (4.70-6.10); White Blood Count 5.96 K/ul (4.8-10.8)
[2022-11-28 04:26] LABS: Albumin Globulin Ratio 1.6 (0.9-2); Albumin Level 4.3 gm/dl (3.4-5.0); BUN Creatinine Ratio 11.1 (10-20); Bilirubin,Total 0.5 mg/dl (0.2-1.0); Calcium 9.3 mg/dl (8.6-10.3); Creatinine Clr Calc Pharmacy 104.8 ml/min; Est GFR (African American) 96.9 ml/min; Est GFR (Non-African American) 83.6 ml/min; Globulin 2.7 gm/dl (2.5-4.0); Magnesium 2.1 mg/dl (1.7-2.4); Potassium 3.7 mmol/L (3.5-5.1)
[2022-11-28 08:23] LABS: Estimated Average Glucose 100 mg/dl; Hemoglobin A1C 5.1 % (4.5-5.6)
--- NOTE | 2022-11-28 11:15 | Cardiology Consultation ---
Date of Consultation November 28, 2022 Assessment & Plan (1) Myocarditis: (2) Elevated transaminase level: Plan Patient is a 42-year-old male presents with acute chest pain and back pain with elevated troponin, AST and ALT. Coronary angiography without coronary disease and LV systolic function is normal Findings suggest acute myocarditis. Clinically improved this morning though heart rate slightly elevated. Troponin still nearly 4000 Impression: 1. Acute myocarditis without fulminant presentation. Lyme screen negative. Last acute febrile illness August. Clinically improved with mildly elevated heart rate. Plan continue to trend troponin. Add heart failure indicated beta- valentin with metoprolol succinate 12.5 g twice per day. Consider RACHEL inhibitor depending on clinical course. Discussed avoiding toxins tobacco alcohol No strenuous exertion x4 weeks Would maintain telemetry additional 24 hours Repeat limited echo in a.m. History of Present Illness Reason for Consultation: Elevated troponin, myocarditis Requesting Physician: Dr. Cervantes Attending Physician: Melvin Cervantes MD History of Present Illness Patient is a 42-year-old male without prior history of cardiac disease or structural heart issues. Sought ER evaluation with symptoms of neck pain beginning after golfing followed by extended chest pressure radiating to the back and shoulders. ER evaluation notable for significant elevation in troponin though without acute EKG changes. Patient underwent urgent diagnostic coronary angiography demonstrating normal coronaries large caliber no distinct wall motion abnormality Troponins peaked at greater than 4000 Currently without further chest pain or shortness of breath this morning. No dizziness or lightheadedness. No arrhythmias on telemetry. No fevers or chills. No recent viral syndrome or illness. 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 Appetite and weight are stable. Sedentary job Occasional alcohol and tobacco use. No street drugs Allergies Allergy/AdvReac Type Severity Reaction Status Date / Time No Known Allergies AdvReac Unknown Unverified 07/05/04 13:41 Home Medications Medication Instructions Recorded Confirmed Type ibuprofen 200 mg tablet (Advil) 200 mg PO DAILY PRN Pain 11/27/22 11/27/22 History Patient History Medical History Inguinal lymphadenopathy Surgical History H/O lymph node excision Family History Grandfather (Maternal) Coronary heart disease Aunt Coronary heart disease Social History Smoking Status: Current some day smoker Second Hand Exposure: No; Do You Dip or Chew Tobacco: No; Hx Alcohol Use: Yes Alcohol type: beer Hx Substance Use: No Preferred Language: [place] [employer] Required: No Beliefs That Will Affect Care: None Current Living Situation: Spouse Feels Safe at Home: Yes Assistive Devices: Glasses Review of Systems Review of Systems: All systems reviewed & are unremarkable except as noted in HPI & below Physical Exam Constitutional: WD/WN, vitals as above Eyes: PERRL, conjunctivae normal, anicteric sclerae ENMT: external ear and nose normal, oropharynx normal Neck: trachea midline, no thyromegaly Respiratory: normal respiratory effort, lungs clear to auscultation Cardiovascular: Rate/Rhythm: regular rate and regular rhythm Heart Sounds: normal S1 and normal S2; no gallop, no murmur and no cardiac rub Palpation: normal PMI Vessels: normal carotid upstroke and radial pulses present (Radial access site on right healing well); no JVD and no carotid bruit Extremities: no edema Gastrointestinal (Abdomen): normal bowel sounds, soft, nontender, no hepatosplenomegaly Musculoskeletal: no cyanosis or clubbing, extremities motor strength 5/5 Skin: no rashes, warm and dry Neurologic: PERRL, EOMI, accommodation nl, no face palsy, no dysarthria Psychiatric: A+Ox3, euthymic affect Results & Data Vital Signs (Past 12 Hours) Vital Signs Temp Pulse Resp BP Pulse Ox O2 Del Method 11/28/22 07:52 37.2 C 87 18 134/91 98 Room Air 11/28/22 03:02 37 C 87 18 116/74 95 Room Air 11/27/22 23:41 38.1 C H Laboratory Results Laboratory Results - last 24 hr 11/27/22 11/27/22 11/27/22 15:32 15:32 15:32 WBC 6.87 RBC 5.16 Hgb 16.1 Hct 46.8 MCV 90.7 MCH 31.2 MCHC 34.4 RDW Std Deviation 40.2 RDW Coeff of Dottie 12.0 Plt Count 213 MPV 9.3 L Immature Gran % (Auto) 0.6 Neut % (Auto) 80.0 Lymph % (Auto) 8.3 [place] % (Auto) 10.8 Eos % (Auto) 0.0 Baso % (Auto) 0.3 Neut # (Auto) 5.50 Lymph # (Auto) 0.57 L [place] # (Auto) 0.74 H Eos # (Auto) 0.00 Baso # (Auto) 0.02 Immature Gran # (Auto) 0.04 PT 10.9 INR 1.0 D-Dimer 600 H* Sodium 136 Potassium 3.9 Chloride 103 Carbon Dioxide 25 Anion Gap 8 BUN 16 Creatinine 1.19 Est Cr Clr Drug Dosing 80.0 Est GFR ( Amer) 86.2 Est GFR (Non-Af Amer) 74.4 BUN/Creatinine Ratio 13.4 Glucose 139 H Estimat Average Glucose Hemoglobin A1c Calcium 10.0 Magnesium Total Bilirubin 0.5 AST 64 H ALT 87 H Alkaline Phosphatase 70 Troponin I High Sens 1509.6 H* Total Protein 8.2 Albumin 4.8 Globulin 3.4 Albumin/Globulin Ratio 1.4 Triglycerides Cholesterol LDL Cholesterol, Calc VLDL Cholesterol, Calc HDL Cholesterol Cholesterol/HDL Ratio Lipase 54 Urine Color Urine Appearance Urine pH Ur Specific [place] Urine Protein Urine Glucose (UA) Urine Ketones Urine Blood Urine Nitrite Urine Bilirubin Urine Urobilinogen Ur Leukocyte Esterase Urine WBC (Auto) Urine RBC (Auto) U Hyaline Cast (Auto) U Epithel Cells (Auto) Urine Bacteria (Auto) Urine Opiates Screen U Codeine Confrm GC/MS Ur Morphine (GC/MS) Ur Hydrocodone (GC/MS) Ur Norhydrocodone Ur Noroxycodone Urine Oxycodone (GC/MS) U Oxymorphone GC/MS Ur Methadone, Qual Ur Hydromorphone (GC/MS) Urine Barbiturates Ur Phencyclidine (PCP) U Amphetamin/Meth Scrn MDMA (Ecstasy) Screen U OH-Alprazolam Confrm U Benzodiazepines Scrn 7-Amino Clonazepam Ur Nordiazepam Confirm U OH-ethylflurazepam U Lorazepam Cnf GC/MS U Oxazepam Confm GC/MS Ur Temazepam Confirm U OH-Triazolam Confirm U OH-Midazolam Confirm Ur Cocaine Metabolite U Marijuana (THC) Screen Drug Screen Comment Lyme Disease IgG Ab Lyme Disease IgM Ab SARS-CoV-2, RNA, NAAT 11/27/22 11/27/22 11/27/22 15:32 16:45 17:38 WBC RBC Hgb Hct MCV MCH MCHC RDW Std Deviation RDW Coeff of Dottie Plt Count MPV Immature Gran % (Auto) Neut % (Auto) Lymph % (Auto) [place] % (Auto) Eos % (Auto) Baso % (Auto) Neut # (Auto) Lymph # (Auto) [place] # (Auto) Eos # (Auto) Baso # (Auto) Immature Gran # (Auto) PT INR D-Dimer Sodium Potassium Chloride Carbon Dioxide Anion Gap BUN Creatinine Est Cr Clr Drug Dosing Est GFR ( Amer) Est GFR (Non-Af Amer) BUN/Creatinine Ratio Glucose Estimat Average Glucose Hemoglobin A1c Calcium Magnesium Total Bilirubin AST ALT Alkaline Phosphatase Troponin I High Sens 2817.7 H* D Total Protein Albumin Globulin Albumin/Globulin Ratio Triglycerides Cholesterol LDL Cholesterol, Calc VLDL Cholesterol, Calc HDL Cholesterol Cholesterol/HDL Ratio Lipase Urine Color Urine Appearance Urine pH Ur Specific [place] Urine Protein Urine Glucose (UA) Urine Ketones Urine Blood Urine Nitrite Urine Bilirubin Urine Urobilinogen Ur Leukocyte Esterase Urine WBC (Auto) Urine RBC (Auto) U Hyaline Cast (Auto) U Epithel Cells (Auto) Urine Bacteria (Auto) Urine Opiates Screen U Codeine Confrm GC/MS Ur Morphine (GC/MS) Ur Hydrocodone (GC/MS) Ur Norhydrocodone Ur Noroxycodone Urine Oxycodone (GC/MS) U Oxymorphone GC/MS Ur Methadone, Qual Ur Hydromorphone (GC/MS) Urine Barbiturates Ur Phencyclidine (PCP) U Amphetamin/Meth Scrn MDMA (Ecstasy) Screen U OH-Alprazolam Confrm U Benzodiazepines Scrn 7-Amino Clonazepam Ur Nordiazepam Confirm U OH-ethylflurazepam U Lorazepam Cnf GC/MS U Oxazepam Confm GC/MS Ur Temazepam Confirm U OH-Triazolam Confirm U OH-Midazolam Confirm Ur Cocaine Metabolite U Marijuana (THC) Screen Drug Screen Comment Lyme Disease IgG Ab Negative Lyme Disease IgM Ab Negative SARS-CoV-2, RNA, NAAT NEGATIVE 11/27/22 11/28/22 11/28/22 21:44 02:13 02:13 WBC RBC Hgb Hct MCV MCH MCHC RDW Std Deviation RDW Coeff of Dottie Plt Count MPV Immature Gran % (Auto) Neut % (Auto) Lymph % (Auto) [place] % (Auto) Eos % (Auto) Baso % (Auto) Neut # (Auto) Lymph # (Auto) [place] # (Auto) Eos # (Auto) Baso # (Auto) Immature Gran # (Auto) PT INR D-Dimer Sodium Potassium Chloride Carbon Dioxide Anion Gap BUN Creatinine Est Cr Clr Drug Dosing Est GFR ( Amer) Est GFR (Non-Af Amer) BUN/Creatinine Ratio Glucose Estimat Average Glucose Hemoglobin A1c Calcium Magnesium Total Bilirubin AST ALT Alkaline Phosphatase Troponin I High Sens Cancelled Total Protein Albumin Globulin Albumin/Globulin Ratio Triglycerides Cholesterol LDL Cholesterol, Calc VLDL Cholesterol, Calc HDL Cholesterol Cholesterol/HDL Ratio Lipase Urine Color Yellow Urine Appearance Clear Urine pH 6.0 Ur Specific [place] > 1.045 H Urine Protein Trace H Urine Glucose (UA) Negative Urine Ketones Trace H Urine Blood Negative Urine Nitrite Negative Urine Bilirubin Negative Urine Urobilinogen Negative Ur Leukocyte Esterase Negative Urine WBC (Auto) 1-5 Urine RBC (Auto) 0-4 U Hyaline Cast (Auto) 1-5 U Epithel Cells (Auto) 5-10 H Urine Bacteria (Auto) Negative Urine Opiates Screen Pos H U Codeine Confrm GC/MS Ur Morphine (GC/MS) Ur Hydrocodone (GC/MS) Ur Norhydrocodone Ur Noroxycodone Urine Oxycodone (GC/MS) U Oxymorphone GC/MS Ur Methadone, Qual Neg Ur Hydromorphone (GC/MS) Urine Barbiturates Neg Ur Phencyclidine (PCP) Neg U Amphetamin/Meth Scrn Neg MDMA (Ecstasy) Screen Neg U OH-Alprazolam Confrm U Benzodiazepines Scrn Pos H 7-Amino Clonazepam Ur Nordiazepam Confirm U OH-ethylflurazepam U Lorazepam Cnf GC/MS U Oxazepam Confm GC/MS Ur Temazepam Confirm U OH-Triazolam Confirm U OH-Midazolam Confirm Ur Cocaine Metabolite Neg U Marijuana (THC) Screen Neg Drug Screen Comment Lyme Disease IgG Ab Lyme Disease IgM Ab SARS-CoV-2, RNA, NAAT 11/28/22 11/28/22 11/28/22 02:13 03:27 03:27 WBC 5.96 RBC 4.72 Hgb 14.6 Hct 42.5 MCV 90.0 MCH 30.9 MCHC 34.4 RDW Std Deviation 39.8 RDW Coeff of Dottie 12.1 Plt Count 168 MPV 9.3 L Immature Gran % (Auto) 0.3 Neut % (Auto) 65.3 Lymph % (Auto) 16.8 Miller % (Auto) 16.9 Eos % (Auto) 0.2 Baso % (Auto) 0.5 Neut # (Auto) 3.89 Lymph # (Auto) 1.00 L [place] # (Auto) 1.01 H Eos # (Auto) 0.01 Baso # (Auto) 0.03 Immature Gran # (Auto) 0.02 PT INR D-Dimer Sodium Potassium Chloride Carbon Dioxide Anion Gap BUN Creatinine Est Cr Clr Drug Dosing Est GFR ( Amer) Est GFR (Non-Af Amer) BUN/Creatinine Ratio Glucose Estimat Average Glucose Hemoglobin A1c Calcium Magnesium Total Bilirubin AST ALT Alkaline Phosphatase Troponin I High Sens 4245.6 H* D Total Protein Albumin Globulin Albumin/Globulin Ratio Triglycerides Cholesterol LDL Cholesterol, Calc VLDL Cholesterol, Calc HDL Cholesterol Cholesterol/HDL Ratio Lipase Urine Color Urine Appearance Urine pH Ur Specific [place] Urine Protein Urine Glucose (UA) Urine Ketones Urine Blood Urine Nitrite Urine Bilirubin Urine Urobilinogen Ur Leukocyte Esterase Urine WBC (Auto) Urine RBC (Auto) U Hyaline Cast (Auto) U Epithel Cells (Auto) Urine Bacteria (Auto) Urine Opiates Screen U Codeine Confrm GC/MS Pending Ur Morphine (GC/MS) Pending Ur Hydrocodone (GC/MS) Pending Ur Norhydrocodone Pending Ur Noroxycodone Pending Urine Oxycodone (GC/MS) Pending U Oxymorphone GC/MS Pending Ur Methadone, Qual Ur Hydromorphone (GC/MS) Pending Urine Barbiturates Ur Phencyclidine (PCP) U Amphetamin/Meth Scrn MDMA (Ecstasy) Screen U OH-Alprazolam Confrm Pending U Benzodiazepines Scrn 7-Amino Clonazepam Pending Ur Nordiazepam Confirm Pending U OH-ethylflurazepam Pending U Lorazepam Cnf GC/MS Pending U Oxazepam Confm GC/MS Pending Ur Temazepam Confirm Pending U OH-Triazolam Confirm Pending U OH-Midazolam Confirm Pending Ur Cocaine Metabolite U Marijuana (THC) Screen Drug Screen Comment Pending Lyme Disease IgG Ab Lyme Disease IgM Ab SARS-CoV-2, RNA, NAAT 11/28/22 11/28/22 11/28/22 03:27 03:27 07:33 WBC RBC Hgb Hct MCV MCH MCHC RDW Std Deviation RDW Coeff of Dottie Plt Count MPV Immature Gran % (Auto) Neut % (Auto) Lymph % (Auto) [place] % (Auto) Eos % (Auto) Baso % (Auto) Neut # (Auto) Lymph # (Auto) [place] # (Auto) Eos # (Auto) Baso # (Auto) Immature Gran # (Auto) PT INR D-Dimer Sodium 135 L Potassium 3.7 Chloride 105 Carbon Dioxide 24 Anion Gap 6 BUN 12 Creatinine 1.08 Est Cr Clr Drug Dosing 104.8 Est GFR ( Amer) 96.9 Est GFR (Non-Af Amer) 83.6 BUN/Creatinine Ratio 11.1 Glucose 111 H Estimat Average Glucose 100 Hemoglobin A1c 5.1 Calcium 9.3 Magnesium 2.1 Total Bilirubin 0.5 AST 67 H ALT 78 H Alkaline Phosphatase 63 Troponin I High Sens 3905.8 H* Total Protein 7.0 Albumin 4.3 Globulin 2.7 Albumin/Globulin Ratio 1.6 Triglycerides 154 H Cholesterol 166 LDL Cholesterol, Calc 93 VLDL Cholesterol, Calc 31 H HDL Cholesterol 42 Cholesterol/HDL Ratio 4.0 Lipase Urine Color Urine Appearance Urine pH Ur Specific [place] Urine Protein Urine Glucose (UA) Urine Ketones Urine Blood Urine Nitrite Urine Bilirubin Urine Urobilinogen Ur Leukocyte Esterase Urine WBC (Auto) Urine RBC (Auto) U Hyaline Cast (Auto) U Epithel Cells (Auto) Urine Bacteria (Auto) Urine Opiates Screen U Codeine Confrm GC/MS Ur Morphine (GC/MS) Ur Hydrocodone (GC/MS) Ur Norhydrocodone Ur Noroxycodone Urine Oxycodone (GC/MS) U Oxymorphone GC/MS Ur Methadone, Qual Ur Hydromorphone (GC/MS) Urine Barbiturates Ur Phencyclidine (PCP) U Amphetamin/Meth Scrn MDMA (Ecstasy) Screen U OH-Alprazolam Confrm U Benzodiazepines Scrn 7-Amino Clonazepam Ur Nordiazepam Confirm U OH-ethylflurazepam U Lorazepam Cnf GC/MS U Oxazepam Confm GC/MS Ur Temazepam Confirm U OH-Triazolam Confirm U OH-Midazolam Confirm Ur Cocaine Metabolite U Marijuana (THC) Screen Drug Screen Comment Lyme Disease IgG Ab Lyme Disease IgM Ab SARS-CoV-2, RNA, NAAT
--- NOTE | 2022-11-28 11:42 | Hospitalist Progress Note ---
Date of Service November 28, 2022 Assessment & Plan (1) Myocarditis: (2) Elevated transaminase level: Plan: Patient is a 42-year-old male with no past medical history who presented with chest pain radiating to back and shoulder. He underwent chest x-ray and CTA chest on admission. Reviewed chest x-ray; no acute finding. CTA chest reviewed; concern for apparent occlusion of LAD. EKG on admission reviewed; normal sinus rhythm with no ST or T wave changes. Patient underwent cardiac cath; angiographically normal coronary arteries were seen. Echocardiogram was done today; EF of 60 to 65%. High-sensitivity troponin elevated to 4000 and down trended. Labs reviewed; AST and ALT mildly elevated. Triglyceride 154, LDL of 93. Discussed with cardiology; recommended to start low-dose beta-valentin with metoprolol 12.5 twice daily. Continue to monitor on telemetry. Trend troponin every 6 hours. Obtain ultrasound liver due to elevated liver enzymes Full code DVT prophylaxis Lovenox Time spent evaluating patient, direct bedside care, chart review, placing orders , interpretation of diagnostic studies, discussion with consultants, patient, and family members, as well as other required patient management activities is 60 minutes. Please note the above document was generated using voice recognition software. It may contain grammatical, syntax or spelling errors. Any formal questions or concerns about the content, text or information contained within the body of this dictation should be directly addressed to the provider for clarification Admission and Anticipated Discharge Date Admission Date: November 27, 2022 Subjective Patient seen and examined at bedside. He is sitting up on the bed comfortable; not in distress. He reports chest pain in substernal region. Denies any shortness of breath or palpitation. Telemetry showed normal sinus rhythm; no alarms. Review of Systems Review of Systems: All systems reviewed & are unremarkable except as noted in Subjective Physical Exam Physical Exam: Constitutional: WD/WN, vitals as above, NAD, sitting up in bed, pleasant, conversing easily Respiratory: normal respiratory effort, lungs clear to auscultation, no wheeze, rales, rhonchi. Normal insp/exp effort, no accessory muscle use Cardiovascular: RRR, no murmur, no edema Vessels: no JVD or carotid bruit Chest: normal inspection of chest Abdomen: normal bowel sounds, soft, nontender, no hepatosplenomegaly Musculoskeletal: no cyanosis or clubbing, extremities motor strength 5/5 Skin: no rashes, warm and dry normal turgor Neurologic: PERRL, EOMI, accommodation nl, no face palsy, no dysarthria CN's II- XI intact bilaterally and moves all extremities Psychiatric: A+Ox3, euthymic affect Results & Data Results & Data Vital Signs (Past 12 Hours) Vital Signs Temp Pulse Resp BP Pulse Ox O2 Del Method 11/28/22 11:18 37.0 C 87 18 120/81 97 Room Air 11/28/22 07:52 37.2 C 87 18 134/91 98 Room Air 11/28/22 03:02 37 C 87 18 116/74 95 Room Air 11/27/22 23:41 38.1 C H Laboratory Results Laboratory Results WBC 5.96 K/ul (4.8-10.8) 11/28/22 03: RBC 4.72 M/uL (4.70-6.10) 11/28/22 03: Hgb 14.6 g/dl (14.0-18.0) 11/28/22 03: Hct 42.5 % (42.0-52.0) 11/28/22 03: MCV 90.0 fL (80.0-100.0) 11/28/22 03: MCH 30.9 pg (25.0-34.0) 11/28/22 03: MCHC 34.4 g/dL (32.0-36.0) 11/28/22 03: RDW Std Deviation 39.8 fL (36.4-46.3) 11/28/22 03: RDW Coeff of Dottie 12.1 % (11.5-14.5) 11/28/22 03: Plt Count 168 K/uL (130-400) 11/28/22 03: MPV 9.3 fL (9.4-12.4) L 11/28/22 03: Immature Gran % (Auto) 0.3 % 11/28/22 03:27 Neut % (Auto) 65.3 % 11/28/22 03: Lymph % (Auto) 16.8 % 11/28/22 03: [place] % (Auto) 16.9 % 11/28/22 03: Eos % (Auto) 0.2 % 11/28/22 03:27 Baso % (Auto) 0.5 % 11/28/22 03:27 Neut # (Auto) 3.89 K/uL (1.40-6.50) 11/28/22 03:27 Lymph # (Auto) 1.00 K/uL (1.2-3.4) L 11/28/22 03:27 [place] # (Auto) 1.01 K/uL (0.11-0.59) H 11/28/22 03:27 Eos # (Auto) 0.01 K/uL (0-0.50) 11/28/22 03:27 Baso # (Auto) 0.03 K/uL (0-0.2) 11/28/22 03:27 Immature Gran # (Auto) 0.02 K/uL (0.01-0.20) 11/28/22 03:27 PT 10.9 Seconds (9.0-12.0) 11/27/22 15:32 INR 1.0 (0.9-1.1) 11/27/22 15:32 D-Dimer 600 ug/L FEU (0-500) H* 11/27/22 15:32 Sodium 135 mmol/L (136-145) L 11/28/22 03:27 Potassium 3.7 mmol/L (3.5-5.1) 11/28/22 03: Chloride 105 mmol/L (98-107) 11/28/22 03:27 Carbon Dioxide 24 mmol/L (21-32) 11/28/22 03:27 Anion Gap 6 (3-11) 11/28/22 03:27 BUN 12 mg/dl (6-23) 11/28/22 03:27 Creatinine 1.08 mg/dl (0.6-1.4) 11/28/22 03:27 Est Cr Clr Drug Dosing 104.8 ml/min 11/28/22 03:27 Est GFR ( Amer) 96.9 ml/min 11/28/22 03:27 Est GFR (Non-Af Amer) 83.6 ml/min 11/28/22 03:27 BUN/Creatinine Ratio 11.1 (10-20) 11/28/22 03:27 Glucose 111 mg/dl (70-99(Fasting)) H 11/28/22 03:27 Estimat Average Glucose 100 mg/dl 11/28/22 03:27 Hemoglobin A1c 5.1 % (4.5-5.6) 11/28/22 03:27 Calcium 9.3 mg/dl (8.6-10.3) 11/28/22 03:27 Magnesium 2.1 mg/dl (1.7-2.4) 11/28/22 03:27 Total Bilirubin 0.5 mg/dl (0.2-1.0) 11/28/22 03:27 AST 67 U/L (13-39) H 11/28/22 03:27 ALT 78 U/L (7-52) H 11/28/22 03:27 Alkaline Phosphatase 63 U/L (34-104) 11/28/22 03:27 Troponin I High Sens 3905.8 pg/ml (0-20) H* 11/28/22 07:33 Total Protein 7.0 gm/dl (6.0-8.3) 11/28/22 03:27 Albumin 4.3 gm/dl (3.4-5.0) 11/28/22 03:27 Globulin 2.7 gm/dl (2.5-4.0) 11/28/22 03:27 Albumin/Globulin Ratio 1.6 (0.9-2) 11/28/22 03:27 Triglycerides 154 mg/dl (0-150) H 11/28/22 03:27 Cholesterol 166 mg/dl (0-200) 11/28/22 03:27 LDL Cholesterol, Calc 93 mg/dl 11/28/22 03:27 VLDL Cholesterol, Calc 31 mg/dl (0-30) H 11/28/22 03:27 HDL Cholesterol 42 mg/dl 11/28/22 03:27 Cholesterol/HDL Ratio 4.0 (0-5) 11/28/22 03:27 Lipase 54 U/L (11-82) 11/27/22 15:32 Urine Color Yellow 11/28/22 02:13 Urine Appearance Clear (Clear) 11/28/22 02:13 Urine pH 6.0 (4.5-7.5) 11/28/22 02:13 Ur Specific [place] > 1.045 (1.000-1.030) H 11/28/22 02:13 Urine Protein Trace (Negative) H 11/28/22 02:13 Urine Glucose (UA) Negative (Negative) 11/28/22 02:13 Urine Ketones Trace (Negative) H 11/28/22 02:13 Urine Blood Negative (Negative) 11/28/22 02:13 Urine Nitrite Negative (Negative) 11/28/22 02:13 Urine Bilirubin Negative (Negative) 11/28/22 02:13 Urine Urobilinogen Negative (Negative) 11/28/22 02:13 Ur Leukocyte Esterase Negative (Negative) 11/28/22 02:13 Urine WBC (Auto) 1-5 /hpf (0-5) 11/28/22 02:13 Urine RBC (Auto) 0-4 /hpf (0-4) 11/28/22 02:13 U Hyaline Cast (Auto) 1-5 /lpf (0-5) 11/28/22 02:13 U Epithel Cells (Auto) 5-10 /lpf (0-5) H 11/28/22 02:13 Urine Bacteria (Auto) Negative (Negative) 11/28/22 02:13 Urine Opiates Screen Pos (Neg) H 11/28/22 02:13 Ur Methadone, Qual Neg (Neg) 11/28/22 02:13 Urine Barbiturates Neg (Neg) 11/28/22 02:13 Ur Phencyclidine (PCP) Neg (Neg) 11/28/22 02:13 U Amphetamin/Meth Scrn Neg (Neg) 11/28/22 02:13 MDMA (Ecstasy) Screen Neg (Neg) 11/28/22 02:13 U Benzodiazepines Scrn Pos (Neg) H 11/28/22 02:13 Ur Cocaine Metabolite Neg (Neg) 11/28/22 02:13 U Marijuana (THC) Screen Neg (Neg) 11/28/22 02:13 Lyme Disease IgG Ab Negative (Negative) 11/27/22 15:32 Lyme Disease IgM Ab Negative (Negative) 11/27/22 15:32 SARS-CoV-2, RNA, NAAT NEGATIVE (NEGATIVE) 11/27/22 16:45 Impressions Chest X-Ray 11/27/22 15:30 XR chest 1V portable CLINICAL HISTORY: Chest pain, nonspecific COMPARISON STUDY: No previous studies for comparison. FINDINGS: Lung volumes are normal. Lungs are clear. There is no pneumothorax or pleural effusion. Cardiac size is normal. Mediastinal contours are normal. There is no evidence for pulmonary edema. IMPRESSION: No acute cardiopulmonary findings. ACT 112: Negative or not required by law. Electronically signed by: Josue Cook M.D. 11/27/2022 3:50 PM Chest CTA 11/27/22 16:45 CT ANGIOGRAPHY OF THE CHEST DISSECTION PROTOCOL CLINICAL HISTORY: Chest pain radiating to back. Evaluate for thoracic aortic dissection. COMPARISON STUDY: Chest radiograph performed earlier today. TECHNIQUE: Before and following the IV administration of 120 mL of Optiray, helical axial images of the chest were obtained. Maximal intensity projections and sagittal and coronal reformats were viewed on an independent 3D workstation. IV contrast was administered without complication. Automated exposure control was utilized for the study. A dose lowering technique was utilized adhering to the principles of ALARA. CT DOSE: 1603.35 mGy.cm FINDINGS: The caliber of the thoracic aorta is normal. There is no thoracic aortic dissection or intramural hematoma. No pulmonary emboli are identified. The size of the heart is normal. There is apparent occlusion of a branch of the left anterior descending coronary artery on axial image 118 of 225. This could be artifactual on this nongated exam. No pericardial effusion. No thoracic lymphadenopathy. Central airways are patent. No pneumothorax or pleural effusion. There is no consolidation to suggest pneumonia. No acute fractures within the bony thorax are present. Visualized portions of the upper abdomen are unremarkable. IMPRESSION: 1. No thoracic aortic dissection. 2. Apparent occlusion of a branch of the left anterior descending coronary artery. This is suboptimally assessed on this nongated exam and may be artifactual. However, an occluded vessel cannot be excluded and correlation with clinical evidence for myocardial infarction is recommended. Findings discussed with Dr. Etienne at time of dictation. ACT 112: Negative or not required by law. Electronically signed by: Josue Cook M.D. 11/27/2022 5:[address] 11/27/22 23:43 Exam(s): CT HEAD Without Contrast EXAM: CT Head Without Intravenous Contrast CLINICAL HISTORY: Reason for exam: tony. TECHNIQUE: Axial computed tomography images of the head/brain without intravenous contrast. Automated exposure control was utilized for the study. A dose lowering technique was utilized adhering to the principles of ALARA. COMPARISON: None. FINDINGS: Brain: Unremarkable. No hemorrhage. No significant white matter disease. No edema. Ventricles: Unremarkable. No ventriculomegaly. Bones/joints: Unremarkable. No acute fracture. Soft tissues: Unremarkable. Sinuses: Unremarkable as visualized. No acute sinusitis. Mastoid air cells: Unremarkable as visualized. No mastoid effusion. IMPRESSION: Normal CT brain. Electronically signed by: Micaela Randle MD 11/28/22 01:51 AM
[2022-11-28 11:59] LABS: C Reactive Protein 4.47 mg/dl (0-0.5)
--- NOTE | 2022-11-28 14:40 | Ultrasound Report ---
ULTRASOUND RIGHT UPPER QUADRANT ABDOMEN CLINICAL HISTORY: Elevated hepatic transaminases. COMPARISON STUDY: Abdominal CT dated 03/02/2009 TECHNIQUE: Real-time, grayscale, and color flow sonography of the right upper quadrant of the abdomen was performed. Images are reviewed in the transverse and longitudinal planes. FINDINGS: Liver: The liver is top normal in size and demonstrates heterogeneously increased echotexture indicat ing steatosis. There is no intrahepatic biliary ductal dilatation. The main portal vein is patent. Gallbladder: The gallbladder is contracted and grossly normal in appearance. No shadowing gallstones are identified. There is no gallbladder wall thickening or pericholecystic fluid. A sonographic Shelia y's sign is reportedly absent. The common bile duct measures up to 0.4 cm in diameter. Pancreas: Visualized portions of the pancreatic head and body are normal in appearance. Right kidney: Survey images of the right kidney demonstrate normal size and echotexture. There is no hydronephrosis. Spleen: The spleen is top normal in size measuring 13.8 cm in length. Echotexture is normal. Ascites: None. IMPRESSION: 1. Hepatic steatosis. 2. No gallstones are seen. ACT 112: Negative or not required by law. Electronically signed by: Ton Campoverde M.D. 11/28/2022 2:38 PM
[2022-11-28] MEDS: METOPROLOL SUCC 25MG EXT REL TAB PO SCH (20:37)
[2022-11-28] MEDS: ACETAMINOPHEN 325 MG TAB PO PRN (20:37)
[2022-11-28] MEDS: ENOXAPARIN INJ 40 MG/0.4 ML SYR SQ SCH (21:14)
[2022-11-29 06:29] LABS: BUN Creatinine Ratio 10.5 (10-20); Calcium 9.3 mg/dl (8.6-10.3); Creatinine Clr Calc Pharmacy 107.8 ml/min; Est GFR (African American) 100.3 ml/min; Est GFR (Non-African American) 86.5 ml/min; Magnesium 2.1 mg/dl (1.7-2.4); Potassium 3.9 mmol/L (3.5-5.1)
[2022-11-29] MEDS: METOPROLOL SUCC 25MG EXT REL TAB PO SCH (08:08)
--- NOTE | 2022-11-29 08:20 | Electrocardiogram Report ---
Test Reason : Blood Pressure : / mmHG Vent. Rate : 089 BPM Atrial Rate : 089 BPM P-R Int : 150 ms QRS Dur : 094 ms QT Int : 338 ms P-R-T Axes : 055 031 023 degrees QTc Int : 411 ms Normal sinus rhythm Possible Left atrial enlargement Borderline ECG No previous ECGs available Confirmed by Gino Arenas ([id number]) on 11/29/2022 8:20:29 AM Referred By: REFERRED SELF Confirmed By:Gino Arenas
--- NOTE | 2022-11-29 08:20 | Electrocardiogram Report ---
Test Reason : Blood Pressure : / mmHG Vent. Rate : 088 BPM Atrial Rate : 088 BPM P-R Int : 148 ms QRS Dur : 088 ms QT Int : 326 ms P-R-T Axes : 060 039 036 degrees QTc Int : 394 ms Normal sinus rhythm Possible Left atrial enlargement Borderline ECG No previous ECGs available Confirmed by Gino Arenas ([id number]) on 11/29/2022 8:20:09 AM Referred By: REFERRED SELF Confirmed By:Gino Arenas
--- NOTE | 2022-11-29 08:20 | Cardiology Progress Note ---
Date of Service November 29, 2022 Assessment & Plan (1) Myocarditis: (2) Elevated transaminase level: Plan IMPRESSION: Patient is a 42-year-old male presents with acute chest pain and back pain with elevated troponin, AST and ALT. Coronary angiography without coronary disease and LV systolic function is normal Findings suggest acute myocarditis. Clinically improved this morning though heart rate slightly elevated. Troponins peaked around 4200, slowly trending downward, 2981 this am. PLAN: 1. Acute myocarditis without fulminant presentation. Lyme screen negative. Last acute febrile illness August. Clinically improved with mildly elevated heart rate. HS troponin trending down. Continue heart failure indicated beta-valentin with metoprolol succinate, will increase to 25 mg twice daily- continue at discharge. Consider addition of ACEi as an outpatient. Discussed avoiding toxins tobacco alcohol No strenuous exertion x4 weeks Repeat limited echo to reassess LVEF- results pending. Case discussed with Dr. Gregorio- Further recommendations pending echo results. Will arrange for close follow up in our outpatient office in 2 weeks. Will need a repeat echo in 1 month. Admission and Anticipated Discharge Date Admission Date: November 27, 2022 Supervising Physician Co-Signing Physician Notes Patient seen and examined, chart, medications, telemetry reviewed. Patient feeling well this morning no symptoms overnight no chest pain or discomfort. Telemetry without arrhythmia. Echocardiogram today with normal LV systolic function without wall motion abnormality EF 65-70% Plan as discussed above we will continue beta-valentin with metoprolol succinate 25 mg twice per day. Patient to be scheduled for follow-up and echocardiogram in next months time Patient to promptly report any new symptoms or complaints avoid strenuous activity Subjective Patient is a 42-year-old male presents with acute chest pain and back pain with elevated troponin, AST and ALT. No prior history of cardiac or structural heart disease. Sought ER evaluation with symptoms of neck pain beginning after golfing followed by extended chest pressure radiating to the back and shoulders. ER evaluation notable for significant elevation in troponin though without acute EKG changes. Patient underwent urgent diagnostic coronary angiography demonstrating normal coronaries large caliber no distinct wall motion abnormality. Coronary angiography without coronary disease and LV systolic function is normal Findings suggest acute myocarditis. 11/28: Clinically improved though heart rate slightly elevated. Started on metoprolol succinate 12 and half milligrams twice daily. 11/29: Upon entrance into the room patient resting comfortably in bed. No acute concerns. Denies chest pain, shortness of breath, palpitations, or light headedness. Eager for discharge. Tele: SR/ST 80-110s Review of Systems Review of Systems: All systems reviewed & are unremarkable except as noted in HPI & below Physical Exam Constitutional: WD/WN, vitals as above Eyes: PERRL, conjunctivae normal, anicteric sclerae ENMT: external ear and nose normal, oropharynx normal Neck: trachea midline, no thyromegaly Respiratory: normal respiratory effort, lungs clear to auscultation Cardiovascular: Rate/Rhythm: regular rate and regular rhythm Heart Sounds: normal S1 and normal S2; no gallop, no murmur and no cardiac rub Palpation: normal PMI Vessels: normal carotid upstroke and radial pulses present (Radial access site on right healing well); no JVD and no carotid bruit Extremities: no edema Gastrointestinal (Abdomen): normal bowel sounds, soft, nontender, no hepatosplenomegaly Musculoskeletal: no cyanosis or clubbing, extremities motor strength 5/5 Skin: no rashes, warm and dry Neurologic: PERRL, EOMI, accommodation nl, no face palsy, no dysarthria Psychiatric: A+Ox3, euthymic affect Results & Data Vital Signs (Past 12 Hours) Vital Signs Temp Pulse Pulse Resp BP Pulse Ox O2 Del Method 11/29/22 07:52 37.3 C 93 H 18 128/85 98 Room Air 11/29/22 02:48 36.9 C 82 18 118/75 97 Room Air 11/28/22 23:00 93 H 11/28/22 22:49 37.3 C 71 18 114/72 97 Room Air Laboratory Results Cardiac Enzymes 11/28/22 11/28/22 11/29/22 Range/Units 12:35 21:40 00:58 Troponin I High Sens 3461.5 H* 3300.4 H* 2981.5 H* (0-20) pg/ml Comprehensive Metabolic Panel 11/29/22 Range/Units 05:42 Sodium 135 L (136-145) mmol/L Potassium 3.9 (3.5-5.1) mmol/L Chloride 105 (98-107) mmol/L Carbon Dioxide 24 (21-32) mmol/L BUN 11 (6-23) mg/dl Creatinine 1.05 (0.6-1.4) mg/dl Glucose 127 H (70-99(Fasting)) mg/dl Calcium 9.3 (8.6-10.3) mg/dl Intake and Output 11/28/22 11/29/22 11/29/22 22:59 06:59 14:59 Intake Total 200 / 920 100 / 920 Balance 200 / 919 100 / 919 Intake: Oral 200 / 920 100 / 920 Other: Weight 104 kg
--- NOTE | 2022-11-29 08:45 | Electrocardiogram Report ---
Test Reason : Blood Pressure : / mmHG Vent. Rate : 087 BPM Atrial Rate : 087 BPM P-R Int : 150 ms QRS Dur : 092 ms QT Int : 334 ms P-R-T Axes : 060 025 029 degrees QTc Int : 401 ms Normal sinus rhythm Possible Left atrial enlargement Borderline ECG When compared with ECG of 27-NOV-2022 16:51, (unconfirmed) No significant change was found Confirmed by Gino Arenas ([id number]) on 11/29/2022 8:45:21 AM Referred By: REFERRED SELF Confirmed By:Gino Arenas
--- NOTE | 2022-11-29 08:56 | Electrocardiogram Report ---
Test Reason : Blood Pressure : / mmHG Vent. Rate : 094 BPM Atrial Rate : 094 BPM P-R Int : 148 ms QRS Dur : 086 ms QT Int : 322 ms P-R-T Axes : 043 035 042 degrees QTc Int : 402 ms Normal sinus rhythm Diffuse Minor Nonspecific T wave abnormality Abnormal ECG When compared with ECG of 28-NOV-2022 05:12, Nonspecific T wave abnormality now present Confirmed by Eric Griffith ([id number]) on 11/29/2022 8:55:59 AM Referred By: REFERRED SELF Confirmed By:Eric Griffith
[2022-11-29] MEDS ORDERED: METOPROLOL SUCC 25MG EXT REL TAB PO ONE (09:30)
[2022-11-29] MEDS ORDERED: METOPROLOL SUCC 25MG EXT REL TAB PO SCH (21:00)
[2022-11-29 22:58] LABS: 7-Aminoclonaz, Confirm NEGATIVE ng/mL (<25); Codeine Urine NEGATIVE ng/mL (<50); Hydro-Alp Ur, GC/MS NEGATIVE ng/mL (<25); Hydrocodone Urine NEGATIVE ng/mL (<50); Hydromor Urine NEGATIVE ng/mL (<50); Hydroxyethylflurazepam, Conf NEGATIVE ng/mL (<50); Hydroxymidazolam Ur, GC/MS 1100 ng/mL (<50); Hydroxytriazolam NEGATIVE ng/mL (<50); Lorazepam, Ur GC/MS NEGATIVE ng/mL (<50); Morphine Urine 1280 ng/mL (<50); Nordiazepam, Confirm NEGATIVE ng/mL (<50); Norhydrocodone Conf Ur NEGATIVE ng/mL (<50); Noroxycodone Urine NEGATIVE ng/mL (<50); Oxazepam Ur, GC/MS NEGATIVE ng/mL (<50); Oxycodone Urine NEGATIVE ng/mL (<50); Oxymorph Urine NEGATIVE ng/mL (<50); Temazepam, Confirm NEGATIVE ng/mL (<50)
== END 2022-11-29 14:08 | disposition home or self-care (01) ==
LOC: ED 15:16 → CC 18:08 → 2E 18:08 → CC 18:24 → SUATTDRO 18:49